=== PATIENT | male | born 1965 | race Caucasian/White ===

== ENCOUNTER 2021-03-24 22:06 | Emergency (ER) | payer OTHER, SELFPAY ==
[2021-03-24 22:20] VITALS: BP 136/94; PULSE 63; RESP 14; TEMP 36.4; O2SAT 98; BMI 28.0
--- NOTE | 2021-03-25 05:06 | ED.WOUNDLAC ---
HPI - Wound/Laceration General Chief Complaint: Wound/Laceration Stated Complaint: LEFT HAND THUMB LACERATION Time Seen by Provider: 03/24/21 22:38 Source: patient Mode of arrival: Ambulatory Limitations: no limitations History of Present Illness HPI narrative: Otherwise healthy 55-year-old gentleman camping at [facility] using a knife to cut some food and the tip of the knife imbedded in the left thumb. Approximately 1.5 cm with moderately heavy bleeding that is difficult to control with pressure in place. The wound is clean as was the knife. He is up-to-date on tetanus. Review of Systems Review of Systems Narrative: Pertinent positive and negative findings as per HPI Remainder of review of systems is otherwise unremarkable for Constitutional: Fevers, chills, weakness ENT: No sore throat, neck pain, ear pain CV: Chest pain, palpitations, Respiratory: Cough, wheeze, dyspnea GI: Nausea, vomiting, diarrhea, : Dysuria, hematuria, Patient History Social History Smoking Status: Never smoker Smoking Status: Never smoker alcohol intake frequency: holidays/special occasions only Substance Use Type: does not use Exam Narrative Exam Narrative: General: Alert appropriate in no acute distress Respiratory: Able to speak in full sentences, no obvious respiratory distress Skin: No obvious rashes, warm and dry Neurologic: Grossly intact no obvious asymmetries or abnormalities Psych: appropriate insight and affect, cooperative Extremity: 1.5 cm laceration to the lateral aspect of the left thumb distally Initial Vital Signs Initial Vital Signs: Vital Signs Temperature 97.5 F L 03/24/21 22:20 Pulse Rate 63 03/24/21 22:20 Respiratory Rate 14 03/24/21 22:20 Blood Pressure 136/94 H 03/24/21 22:20 Pulse Oximetry 98 03/24/21 22:20 Procedures Laceration Repair Left thumb: Time of procedure: 22:25 Site: hand Side (If applicable): left Size (cm): 1.5 Description: linear Depth: simple, single layer Local Anesthetic: lidocaine 1% Amount of anesthesia used (mL): 2 Pre-repair: wound explored and deep structures intact Skin layer closed with: nylon Size (cm): 3-0 Number of sutures: 1 Technique: simple, interrupted Course Vital Signs Vital signs: Vital Signs - 8 hr 03/24/21 22:20 Temperature 97.5 F L Pulse Rate 63 Respiratory Rate 14 Blood Pressure 136/94 H Pulse Oximetry 98 MDM - Wound/Laceration MDM Narrative Medical decision making narrative: 55-year-old gentleman with a 1.5 cm laceration to the distal lateral edge of the left thumb. Single sutures placed for more rapid healing and hemostasis. Patient tolerated the procedure well. He is discharged home in stable condition Discharge Plan Departure Patient Disposition: Home Clinical Impression: Laceration Instructions: DI for Laceration Repair -- Finger Activity Restrictions/Additional Instructions: Thank you for coming in today The cut was big enough that a stitch was needed for bleeding control. It will also help it heal. Use some antibiotic and Band-Aid while the suture is in place. The suture needs to come out on or about March 31 If you notice increasing redness, swelling or other signs of infection, please return to the ER I hope you heal quickly
== END 2021-03-24 22:45 | disposition home or self-care (01) ==
PROVIDERS: Emergency Provider Emergency Medicine
DX: S61.012A Laceration without foreign body of left thumb without damage to nail, initial encounter (principal); W26.0XXA Contact with knife, initial encounter
CPT/HCPCS: 12001; 99282; 99283